=== PATIENT | male | born 1950 | race Caucasian/White ===

== ENCOUNTER → 2016-12-29 | Outpatient (REF) | payer OTHER | LOC: M SFHCCLAY 14:45 | PROVIDERS: ATTEND Family Medicine | DX: Z01.812 Encounter for preprocedural laboratory examination (principal) ==

== ENCOUNTER → 2018-02-08 | Outpatient (REF) | payer MEDICARE, OTHER ==
[~2018-02-08] MED LIST: AUGM875T28 PO; BREO1INH INH; ERYT5OPO; FLOM0.4C39 PO
[2018-02-08 12:07] LABS: ALBUMIN 3.9 GM/DL (3.2-5.2); ALT/SGPT 39 U/L (12-78); BILIRUBIN,TOTAL 0.8 MG/DL (0.2-1.0); BLOOD UREA NITROGEN 17 MG/DL (7-18); CARBON DIOXIDE LEVEL 26 MEQ/L (21-32); CHLORIDE LEVEL 107 MEQ/L (98-107); CHOLESTEROL LEVEL 147 MG/DL (<200); CREATININE FOR GFR 0.94 MG/DL (0.70-1.30); GLOMERULAR FILTRATION RATE > 60.0 (>49); GLUCOSE, FASTING 104 MG/DL (70-100); HDL CHOLESTEROL 49 MG/DL (>40); LDL CHOLESTEROL 86 MG/DL (<100); NON-HDL-C 98 MG/DL; POTASSIUM SERUM 3.7 MEQ/L (3.5-5.1); SODIUM LEVEL 141 MEQ/L (136-145); TOTAL PROTEIN 6.8 GM/DL (6.4-8.2); TRIGLYCERIDES LEVEL 60 MG/DL (<150)
== END ==
LOC: M SFHCCLAY 08:57
PROVIDERS: ATTEND Family Medicine
DX: E78.5 Hyperlipidemia, unspecified (principal)
CPT/HCPCS: 80053; 80061; 93005; G0463

== ENCOUNTER 2018-03-02 18:23 | Emergency (ER) | payer MEDICARE, OTHER ==
[~2018-03-02] VITALS: Ht 182.9 cm; Wt 97.3 kg
[2018-03-02] MEDS ORDERED: BREO1INH INH (18:53)
[2018-03-02] MEDS ORDERED: FLOM0.4C39 PO (18:53)
[2018-03-02] MEDS ORDERED: ERYT5OPO (18:53)
[2018-03-02] MEDS ORDERED: PERCOCET 5MG/325MG TAB PO ONE (19:30)
[2018-03-02] MEDS ORDERED: AUGMENTIN 875 MG TAB PO ONE (19:30)
--- NOTE | 2018-03-02 19:52 | REPVR ---
EXAM: CT Head Without Contrast EXAM DATE/TIME: 03/02/2018 6:57 PM CLINICAL HISTORY: 68 years old, male; Injury or trauma; Fall; Initial encounter; Blunt trauma (contusions or hematomas); Consciousness not specified; Additional info: Fall, nasal deformity TECHNIQUE: Axial computed tomography images of the head/brain without contrast. All CT scans at this facility use at least one of these dose optimization techniques: automated exposure control; mA and/or kV adjustment per patient size (includes targeted exams where dose is matched to clinical indication); or iterative reconstruction. COMPARISON: No relevant prior studies available. FINDINGS: Brain: There is mild cortical atrophy. Minimal low-density in the periventricular white matter. No hemorrhage. Ventricles: Normal. No ventriculomegaly. Bones/joints: There is a fracture of the right nasal bone. Sinuses: Normal as visualized. No acute sinusitis. Mastoid air cells: Normal as visualized. No mastoid effusion. Soft tissues: Normal. IMPRESSION: 1. No acute findings. 2. Fracture of the right nasal bone. Electronically signed by: Brielle Wilkinson On 03/02/2018 19:52:05 PM
--- NOTE | 2018-03-02 20:00 | REPVR ---
EXAM: CT Cervical Spine Without Contrast EXAM DATE/TIME: 03/02/2018 6:57 PM CLINICAL HISTORY: 68 years old, male; Injury or trauma; Fall; Initial encounter; Blunt trauma; Additional info: Fall, nasal deformity TECHNIQUE: Axial computed tomography images of the cervical spine without intravenous contrast. All CT scans at this facility use at least one of these dose optimization techniques: automated exposure control; mA and/or kV adjustment per patient size (includes targeted exams where dose is matched to clinical indication); or iterative reconstruction. Coronal and sagittal reformatted images were created and reviewed. COMPARISON: No relevant prior studies available. FINDINGS: Vertebrae: No acute fracture. Normal alignment. Soft tissues: Unremarkable. Lungs: Lung apices are normal. DISCS/SPINAL CANAL/NEURAL FORAMINA: C2-C3: Mild uncovertebral hypertrophy. No disc herniation. No central stenosis. No neural foraminal narrowing. C3-C4: Mild uncovertebral hypertrophy. No disc herniation. No central stenosis. No neural foraminal narrowing. C4-C5: Moderate uncovertebral hypertrophy. Disc space narrowing. Vacuum disc noted. No disc herniation. No central stenosis. Mild right foraminal stenosis. C5-C6: Moderate to severe uncovertebral hypertrophy. Narrowed intervertebral disc space. Moderate bilateral foraminal stenosis. No central stenosis. No disc herniation. C6-C7: Moderate to severe bilateral uncovertebral hypertrophy. Narrowed intervertebral disc space. Moderate foraminal stenosis on the right. Mild foraminal stenosis on the left. No disc herniation. No central stenosis. . C7-T1: No disc herniation. No spinal stenosis. No neural foraminal narrowing. IMPRESSION: No acute findings. 2. Degenerative disc disease with foraminal stenosis in the mid and lower cervical spine. Electronically signed by: Brielle Wilkinson On 03/02/2018 20:00:13 PM
--- NOTE | 2018-03-02 20:05 | REPVR ---
EXAM: CT Maxillofacial Without Contrast EXAM DATE/TIME: 03/02/2018 6:57 PM CLINICAL HISTORY: 68 years old, male; Injury or trauma; Fall; Initial encounter; Blunt trauma (contusions or hematomas); Nose; Additional info: Fall, nasal deformity TECHNIQUE: Axial computed tomography images of the face without intravenous contrast. All CT scans at this facility use at least one of these dose optimization techniques: automated exposure control; mA and/or kV adjustment per patient size (includes targeted exams where dose is matched to clinical indication); or iterative reconstruction. Coronal and sagittal reformatted images were created and reviewed. COMPARISON: No relevant prior studies available. FINDINGS: Orbits: No acute intraorbital abnormality. Globes are unremarkable. Sinuses: Normal. No air-fluid levels. Bones/joints: The nose is deviated to the left. There is a small fracture of the anterior superior aspect of the left nasal bone. 3 fractures are noted of the right nasal bone. Nasal cavity: The nasal septum is deviated to the right. Soft tissues: No significant facial soft tissue swelling. IMPRESSION: Multiple nasal bone fractures. Electronically signed by: Brielle Wilkinson On 03/02/2018 20:04:30 PM
[2018-03-02] MEDS ORDERED: AUGM875T28 PO (20:28)
[2018-03-02] MEDS ORDERED: OXYCODONE/APAP 5MG/325MG(BULK FOR ED) 1 TABLET PO ONE (20:30)
[2018-03-02 20:53] VITALS: BP 169/77
== END 2018-03-02 20:54 | disposition home or self-care (01) ==
LOC: M ED 18:23
DX: S02.2XXB Fracture of nasal bones, initial encounter for open fracture (principal); S06.0X0A Concussion without loss of consciousness, initial encounter; W22.8XXA Striking against or struck by other objects, initial encounter; Y92.89 Other specified places as the place of occurrence of the external cause; J45.909 Unspecified asthma, uncomplicated; K21.9 Gastro-esophageal reflux disease without esophagitis; G47.33 Obstructive sleep apnea (adult) (pediatric); N40.0 Benign prostatic hyperplasia without lower urinary tract symptoms; Z99.89 Dependence on other enabling machines and devices; Z79.899 Other long term (current) drug therapy; Z88.1 Allergy status to other antibiotic agents; Z88.8 Allergy status to other drugs, medicaments and biological substances; Z87.891 Personal history of nicotine dependence

== ENCOUNTER 2018-03-15 10:54 | Day surgery (SDC) | payer MEDICARE, OTHER ==
[~2018-03-15] VITALS: Ht 182.9 cm; Wt 97.1 kg
[~2018-03-15 10:54] MED LIST changes: +NORCO, ANEXSIA 5/325MG TABLET (HYDROcodone/ACETAMINOPHEN) PO SCH
[2018-03-15] MEDS ORDERED: ONDANSETRON 4MG/2ML VIAL (J2405) As Ordered ONE (12:24)
[2018-03-15] MEDS ORDERED: LIDOCAINE 2% INJ 100 MG/5 ML SDV (FOR ANES.) As Ordered ONE (12:25)
[2018-03-15] MEDS ORDERED: PROPOFOL 200 MG/20 ML VIAL As Ordered ONE ×2 (12:25→14:05)
[2018-03-15] MEDS ORDERED: dexameTHASONE 4 MG/ML 1ML VIAL (J1100) As Ordered ONE (12:25)
[2018-03-15] MEDS ORDERED: fentaNYL 100 MCG/2 ML INJECTION (J3010) As Ordered ONE ×3 (12:26→15:01)
[2018-03-15] MEDS ORDERED: MIDAZOLAM INJ 2 MG/2 ML VIAL (J2250) As Ordered ONE (12:26)
[2018-03-15] MEDS ORDERED: METHYLENE BLUE 0.5% (5MG/ML) 10 ML AMP (PROVAYBLUE)(Q9968 PER 1MG) As Ordered ONE (13:08)
[2018-03-15] MEDS ORDERED: EPINEPHrine 1MG/ML INJ 30ML MD-VIAL As Ordered ONE (13:08)
[2018-03-15] MEDS ORDERED: LIDOCAINE W/EPINEPHRINE 1% 20ML VIAL As Ordered ONE (13:08)
[2018-03-15] MEDS ORDERED: KETOROLAC 60 MG/2 ML VIAL (J1885) As Ordered ONE (14:01)
[2018-03-15] MEDS ORDERED: SUGAMMADEX SODIUM 500 MG/5 ML VIAL (BRIDION) As Ordered ONE (14:06)
[2018-03-15] MEDS ORDERED: ROCURONIUM BROMIDE 50 MG/5 ML VIAL As Ordered ONE (14:06)
[2018-03-15] MEDS ORDERED: GLYCOPYRROLATE INJ 0.2 MG/ML 2 ML VIAL As Ordered ONE (14:24)
[2018-03-15] MEDS: PERCOCET 5MG/325MG TAB PO PRN ×2 (15:00→15:35)
[2018-03-15] MEDS: fentaNYL 100 MCG/2 ML INJECTION (J3010) IV PRN ×4 (15:00→15:20)
[2018-03-15] MEDS ORDERED: PERCOCET 5MG/325MG TAB As Ordered ONE (15:01)
[2018-03-15] MEDS ORDERED: ONDANSETRON 4MG/2ML VIAL (J2405) IV PRN (15:15)
[2018-03-15] MEDS ORDERED: LR 1,000 ML IV SCH ×2 (15:15→19:00)
[2018-03-15] MEDS ORDERED: NORCO, ANEXSIA 5/325MG TABLET (HYDROcodone/ACETAMINOPHEN) As Ordered ONE (18:22)
[2018-03-15] MEDS ORDERED: NORCO, ANEXSIA 5/325MG TABLET (HYDROcodone/ACETAMINOPHEN) PO PRN (19:00)
[2018-03-15 19:15] VITALS: BP 152/70
--- NOTE | 2018-03-20 16:01 | RO ---
DATE OF PROCEDURE: 03/15/2018 PREOPERATIVE DIAGNOSES: Right nasal deformity and nasal bone fracture. POSTOPERATIVE DIAGNOSES: Right nasal deformity and nasal bone fracture. PROCEDURE PERFORMED: Closed nasal reduction. SURGEON: Dr. Bebo Pickens ACCOUNT SERVICE REPRESENTATIVE: ANESTHESIA: General. CLINICAL PREAMBLE: This 68-year-old man sustained trauma to the nose on 03/02/2018. It resulted in the nasal deformity including closed nasal fracture. CT scan of the sinuses confirmed presence of fracture of right nasal bone. Management options including closed nasal reduction have been discussed. Patient understood and consented to the procedure. DESCRIPTION OF PROCEDURE: Patient was identified in preoperative holding and brought to the operating room in stable condition. In supine position on the operating table, patient received general anesthesia followed by orotracheal intubation without incident. Patient was prepped and draped in the usual fashion for the procedure. Both sides of the nasal cavity were packed using pledgets soaked in 1:1000 epinephrine. After a waiting period, the pledgets were removed. The nasal dorsum was palpated and was noted to be deviated to the left side. Using the [employer] nasal fracture elevators, the depressed portion of the nasal bone along the right lateral border was carefully elevated and attempted to replace along the natural anatomic location. The [place] splint was then applied to the appropriately prepped skin surface of the nasal dorsum. At the end of the procedure, sponge and instrument counts were correct. No complication was encountered. Estimated blood loss was less than 10 mL. General anesthesia was reversed, and patient was extubated and brought to recovery room in stable condition.
== END 2018-03-15 19:32 | disposition home or self-care (01) ==
LOC: M SDC 10:54
PROVIDERS: ATTEND Otolaryngology
DX: S02.2XXA Fracture of nasal bones, initial encounter for closed fracture (principal); G47.33 Obstructive sleep apnea (adult) (pediatric); J45.909 Unspecified asthma, uncomplicated; N40.0 Benign prostatic hyperplasia without lower urinary tract symptoms; R51 Headache; Z88.1 Allergy status to other antibiotic agents; Z85.828 Personal history of other malignant neoplasm of skin; Z72.0 Tobacco use; X58.XXXA Exposure to other specified factors, initial encounter; Y93.89 Activity, other specified; Y92.89 Other specified places as the place of occurrence of the external cause; Y99.8 Other external cause status
CPT/HCPCS: 21320; J1100; J1885; J2250; J2405; J3010; Q9968

== ENCOUNTER 2018-06-21 13:40 | Emergency (ER) | payer MEDICARE, OTHER ==
[~2018-06-21] VITALS: Ht 182.9 cm; Wt 100.9 kg
[~2018-06-21 13:40] MED LIST changes: +ERYT1OIN26; -ERYT5OPO; -NORCO, ANEXSIA 5/325MG TABLET (HYDROcodone/ACETAMINOPHEN) PO SCH
[2018-06-21] MEDS ORDERED: BREO1INH PO (13:45)
[2018-06-21] MEDS ORDERED: LIDOCAINE 1% MDV 20ML VIAL SC ONE (15:15)
[2018-06-21] MEDS ORDERED: ADACEL/BOOSTRIX VACCINE (DIPHTH/PERTUSS/ACELL/TETANUS)0.5ML SYR (90715) IM ONE (15:15)
--- NOTE | 2018-06-21 15:54 | REP ---
REASON: Pain after trauma. PRIORS: None. There is a tuft fracture of the third digit with evidence of laceration of the fingertip. Electronically Signed by Hema Garcias DO 06/21/2018 04:33 P
[2018-06-21] MEDS ORDERED: CEPHALEXIN 500 MG CAP PO ONE (16:15)
[2018-06-21] MEDS ORDERED: KEFL500C17 PO (16:18)
[2018-06-21] MEDS ORDERED: NORC1TAB7 PO (16:35)
[2018-06-21] MEDS ORDERED: NORCO, ANEXSIA 5/325MG TABLET (HYDROcodone/ACETAMINOPHEN) PO ONE (16:45)
[2018-06-21 16:56] VITALS: BP 158/74
== END 2018-06-21 16:57 | disposition home or self-care (01) ==
LOC: M ED 13:40
DX: S62.633B Displaced fracture of distal phalanx of left middle finger, initial encounter for open fracture (principal); W23.0XXA Caught, crushed, jammed, or pinched between moving objects, initial encounter; Y92.018 Other place in single-family (private) house as the place of occurrence of the external cause; J45.909 Unspecified asthma, uncomplicated; N40.0 Benign prostatic hyperplasia without lower urinary tract symptoms; Z79.899 Other long term (current) drug therapy; Z88.1 Allergy status to other antibiotic agents

== ENCOUNTER → 2019-03-04 | Outpatient (REF) | payer MEDICARE, OTHER ==
[~2019-03-04] MED LIST changes: +BREO1INH PO; +KEFL500C17 PO; +NORC1TAB7 PO
[2019-03-04 12:41] LABS: ALBUMIN 4.4 GM/DL (3.2-5.2); ALT/SGPT 37 U/L (12-78); BILIRUBIN,TOTAL 0.9 MG/DL (0.2-1.0); BLOOD UREA NITROGEN 20 MG/DL (7-18); CALCIUM LEVEL 9.6 MG/DL (8.8-10.2); CARBON DIOXIDE LEVEL 27 MEQ/L (21-32); CHLORIDE LEVEL 104 MEQ/L (98-107); CHOLESTEROL LEVEL 172 MG/DL (<200); CHOLESTEROL RISK RATIO 3.185 (<5); GLOMERULAR FILTRATION RATE > 60.0 (>49); GLUCOSE, FASTING 109 MG/DL (70-100); HDL CHOLESTEROL 54 MG/DL (>40); LDL CHOLESTEROL 103 MG/DL (<100); NON-HDL-C 118 MG/DL; POTASSIUM SERUM 4.3 MEQ/L (3.5-5.1); SODIUM LEVEL 141 MEQ/L (136-145); TOTAL PROTEIN 7.7 GM/DL (6.4-8.2); TRIGLYCERIDES LEVEL 75 MG/DL (<150)
== END ==
LOC: M SFHCCLAY 08:11
PROVIDERS: ATTEND Family Medicine
DX: E78.5 Hyperlipidemia, unspecified (principal)
CPT/HCPCS: 80053; 80061; G0463

== ENCOUNTER → 2020-05-12 | Outpatient (REF) | payer MEDICARE, OTHER ==
[~2020-05-12] MED LIST changes: -ERYT1OIN26; +ERYT5OIN25
[2020-05-12 11:59] LABS: BASO # 0.1 10^3/uL (0.0-0.2); BASO % 0.6 % (0.0-1.0); EOS # 0.2 10^3/uL (0.0-0.5); EOS % 1.9 % (0.0-3.0); HEMATOCRIT 42.6 % (42.0-52.0); LYMPH # 3.2 10^3/uL (1.5-5.0); LYMPH % 30.8 % (24.0-44.0); MEAN CORPUSCULAR HEMOGLOBIN 29.7 pg (27.0-33.0); MEAN CORPUSCULAR HGB CONC 32.9 g/dl (32.0-36.5); MEAN CORPUSCULAR VOLUME 90.4 fl (80.0-96.0); MONO # 0.8 10^3/uL (0.0-0.8); MONO % 8.1 % (2.0-8.0); NEUTROPHILS % 58.3 % (36.0-66.0); PLATELET COUNT, AUTOMATED 369 10^3/uL (150-450); RED BLOOD COUNT 4.71 10^6/uL (4.30-6.10); WHITE BLOOD COUNT 10.3 10^3/uL (4.0-10.0)
[2020-05-12 12:05] LABS: ALBUMIN 4.3 GM/DL (3.2-5.2); ALT/SGPT 63 U/L (12-78); BILIRUBIN,TOTAL 0.9 MG/DL (0.2-1.0); BLOOD UREA NITROGEN 20 MG/DL (7-18); CALCIUM LEVEL 10.2 MG/DL (8.8-10.2); CARBON DIOXIDE LEVEL 29 MEQ/L (21-32); CHLORIDE LEVEL 105 MEQ/L (98-107); CHOLESTEROL LEVEL 223 MG/DL (<200); CHOLESTEROL RISK RATIO 4.645 (<5); GLOMERULAR FILTRATION RATE > 60.0 (>49); GLUCOSE, FASTING 108 MG/DL (70-100); HDL CHOLESTEROL 48 MG/DL (>40); LDL CHOLESTEROL 145 MG/DL (<100); NON-HDL-C 175 MG/DL; SODIUM LEVEL 140 MEQ/L (136-145); TOTAL PROTEIN 7.5 GM/DL (6.4-8.2); TRIGLYCERIDES LEVEL 149 MG/DL (<150)
== END ==
LOC: M SFHCCLAY 07:56
PROVIDERS: ATTEND Family Medicine
DX: E78.5 Hyperlipidemia, unspecified (principal)
CPT/HCPCS: 80053; 80061; 85025; G0463

== ENCOUNTER 2020-11-07 11:47 | Inpatient (IN) | payer MEDICARE, OTHER ==
[~2020-11-07] VITALS: Ht 182.9 cm; Wt 96.5 kg
[2020-11-07] MEDS ORDERED: dexameTHASONE 4 MG/ML 1ML VIAL (J1100 PER 1MG) IV ONE (12:10)
[2020-11-07] MEDS: COMBIVENT RESPIMAT 100-20MCG INHALER 4GM INH SCH ×3 (12:30→13:45)
--- NOTE | 2020-11-07 12:40 | REP ---
INDICATION: DYSPNEA/COUGH. COMPARISON: Portable chest, 01/19/2010. TECHNIQUE: Upright AP chest image was obtained. FINDINGS: There is airspace disease in the mid lung zone on the right and in the lower lung zone on the left consistent with atelectasis or pneumonia. There is cardiomegaly and aortic ectasia consistent with benign essential hypertension. There is calcific vascular disease of the thoracic aorta. The upper abdominal bowel gas pattern is normal. There are no bony abnormalities of the chest IMPRESSION: 1. Bilateral airspace disease consistent with atelectasis or pneumonia. 2. Findings consistent with hypertension. <Electronically signed by Maik Garcia > 11/07/20 [id number]
[2020-11-07 12:41] LABS: BASO % 0.3 % (0.0-1.0); HEMATOCRIT 35.7 % (42.0-52.0); HEMOGLOBIN 11.5 g/dl (13.5-17.5); LYMPH % 13.5 % (24.0-44.0); MEAN CORPUSCULAR HEMOGLOBIN 29.3 pg (27.0-33.0); MEAN CORPUSCULAR HGB CONC 32.2 g/dl (32.0-36.5); MEAN CORPUSCULAR VOLUME 90.8 fl (80.0-96.0); MONO # 0.3 10^3/uL (0.0-0.8); MONO % 4.3 % (2.0-8.0); NEUTROPHILS # 6.1 10^3/uL (1.5-8.5); NEUTROPHILS % 81.2 % (36.0-66.0); PLATELET COUNT, AUTOMATED 201 10^3/uL (150-450); RED BLOOD COUNT 3.93 10^6/uL (4.30-6.10); WHITE BLOOD COUNT 7.5 10^3/uL (4.0-10.0)
[2020-11-07 12:42] LABS: VENOUS BASE EXCESS 1.1 (-2.0-2.0); VENOUS HCO3 27.5 MEQ/L (23.0-27.0); VENOUS O2 SATURATION 57.8 % (60.0-80.0); VENOUS PARTIAL PRESSURE CO2 51.6 mmHg (38.0-50.0); VENOUS PARTIAL PRESSURE O2 32.8 mmHg (30.0-50.0); VENOUS PH 7.345 UNITS (7.330-7.430); VENOUS STANDARD HCO3 24.6 MEQ/L; VENOUS TOTAL CO2 29.1 MEQ/L (24.0-28.0)
[2020-11-07 13:07] LABS: RSV AMPLIFICATION NEGATIVE (NEGATIVE)
[2020-11-07 13:16] LABS: ALT/SGPT 105 U/L (12-78); BILIRUBIN,DIRECT 0.3 MG/DL (0.0-0.2); BLOOD UREA NITROGEN 16 MG/DL (7-18); CALCIUM LEVEL 8.1 MG/DL (8.8-10.2); CARBON DIOXIDE LEVEL 27 MEQ/L (21-32); CHLORIDE LEVEL 107 MEQ/L (98-107); CK-MB VALUE MASS 4.5 NG/ML (<3.6); CPK CREATINE PHOSPHOKINASE 789 U/L (39-308); CREATININE FOR GFR 0.84 MG/DL (0.70-1.30); GLOMERULAR FILTRATION RATE > 60.0 (>49); GLUCOSE, FASTING 109 MG/DL (70-100); MB/CK RELATIVE INDEX 0.57 (< OR =4); NT-PRO BNP 76 PG/ML (<125); POTASSIUM SERUM 4.3 MEQ/L (3.5-5.1); SODIUM LEVEL 139 MEQ/L (136-145); TOTAL PROTEIN 6.2 GM/DL (6.4-8.2); TROPONIN I < 0.02 NG/ML (< 0.10)
[2020-11-07] MEDS ORDERED: IBUP-1720 PO (15:11)
[2020-11-07] MEDS ORDERED: ACET-683 PO (15:11)
[2020-11-07] MEDS ORDERED: HOME MED LIST COMPLETE! XX SCH (15:15)
--- NOTE | 2020-11-07 15:21 | HPEPDOC ---
General Date of Admission Nov 07, 2020 at 14:08 Date of Service: Nov 07, 2020 Chief Complaint The patient is a 70-year-old male admitted with a reason for visit of Pneumonia Due To Covid 19 Virus. History of Present Illness 70-year-old male with history of asthma, DREW on CPAP, BPH status post seeding presented to the emergency room with 7 days history of cough cold congestion malaise body aches flulike symptoms. His had COVID from 4 to 5 days prior to his symptoms. For the past 4 days he felt that his asthma has been acting up he was having shortness of breath, wheezing. He has been using nebulizers every 4 hours and checking his oxygen saturation. His oxygen has been ranging from 82% to 89% at home. This morning he woke up and his oxygen saturation was 82% he used his nebulizer without any improvement. He felt that his asthma exacerbation was not getting any better so he came to the emergency room. He is unvaccinated for the Covid. In the ED he was found to be Covid positive. Chest x-ray shows bilateral pulmonary infiltrates. He is admitted for Covid pneumonia with hypoxia. Home Medications Scheduled Fluticasone/Vilanterol (Breo Ellipta 100-25 Mcg INH) 1 Each Blst.w.dev, 1 PUFF PO DAILY, (Reported) Scheduled PRN Acetaminophen (Acetaminophen) 500 Mg Tablet, 1,000 MG PO Q6H PRN for FEVER, (Reported) Ibuprofen (Ibuprofen) 200 Mg Tablet, 800 MG PO TID PRN for PAIN LEVEL 1-4, (Reported) Allergies Coded Allergies: chloramphenicol (Verified Allergy, Unknown, 06/21/18) ciprofloxacin (Verified Allergy, Unknown, 06/21/18) levofloxacin (Verified Allergy, Unknown, 06/21/18) Past Medical History Medical History Asthma, DREW, BPH Surgical History Tonsillectomy and adenoidectomy bilateral eyelid surgery, lower back surgery, appendectomy, seeding of prostate, back injections, Family History Significant Family History: Asthma (Children), Cancer (Father from multiple myeloma) Social History * Smoker: non-smoker Alcohol: rarely Drugs: denies A-FIB/CHADSVASC A-FIB History Current/History of A-Fib/PAF?: No Review of Systems Constitutional: Reports: Malaise, Weakness, Fatigue; Denies: Chills, Fever, Night Sweats Eyes: Denies: Pain, Vision change ENT: Reports: Sinus Congestion, Sore Throat; Denies: Head Aches, Ear Pain, Dysphagia Skin: Denies: Rash, Lesions, Breakdown Pulmonary: Reports: Dyspnea, Cough Cardiovascular: Denies: Chest Pain, Palpitations, Orthopnea, Paroxysmal Noc. Dyspnea, Lt Headedness Gastrointestinal: Denies: Nausea, Vomiting, Abdominal Pain, Diarrhea Genitourinary: Denies: Dysuria, Frequency, Incontinence, Retention Musculoskeletal: Denies: Neck Pain, Back Pain, Joint Pain, Muscle Pain, Spasms Neurological: Denies: Weakness, Numbness, Change in speech, Confusion Physical Examination General Exam: Positive: Alert, Cooperative, No Acute Distress Eye Exam: Positive: PERRLA, Conjunctiva & lids normal, EOMI; Negative: Sclera icteric ENT Exam: Positive: Atraumatic, Mucous membr. moist/pink, Pharynx Normal Neck Exam: Positive: Supple; Negative: JVD, thyromegaly Chest Exam: Positive: Rhonchi, Diminished, Other (Bilateral diffuse crackles); Negative: Rales, Wheezing Heart Exam: Positive: Rate Normal, Regular Rhythm, Normal S1, Normal S2; Negative: Murmurs, Rubs Abdomen Exam: Positive: Normal bowel sounds, Soft; Negative: Tenderness Extremity Exam: Negative: Clubbing, Cyanosis, Edema Skin Exam: Positive: Nl turgor and temperature; Negative: Breakdown, Lesion Neuro Exam: Positive: Normal Speech, Strength at 5/5 X4 ext, Normal Tone Psych Exam: Positive: Memory Intact, Oriented x 3 Vital Signs Vital Signs Date Time Temp Pulse Resp B/P (MAP) Pulse Ox O2 Delivery O2 Flow Rate FiO2 11/07/20 14:52 98.2 11/07/20 14:30 81 153/68 (96) 89 Nasal Cannula 11/07/20 13:47 18 Laboratory Data Labs 24H Laboratory Tests 2 11/07/20 12:22: Coronavirus (COVID-19)(PCR) POSITIVEA, Influenza Type A (RT-PCR) NEGATIVE, Influ dorinda Type B (RT-PCR) NEGATIVE, Respiratory Syncytial Virus (PCR) NEGATIVE 11/07/20 12:29: Blood Gas Bicarbonate Standard 24.6, Venous Blood pH 7.345, Venous Blood Partial Pressure CO2 51.6H, Venous Blood Partial Pressure O2 32.8, Venous Blood Total Carbon Dioxide 29.1H, Venous Blood HCO3 27.5H, Venous Blood Oxygen Saturation 57.8L, Venous Blood Base Excess 1.1, Anion Gap 5L, Glomerular Filtration Rate > 60.0, Calcium Level 8.1L, Total Bilirubin 1.0, Direct Bilirubin 0.3H, Aspartate Amino Transf (AST/SGOT) 114H, Alanine Aminotransferase (ALT/SGPT) 105H, Alkaline Phosphatase 55, Total Creatine Kinase 789H, Creatine Kinase MB 4.5H, Creatine Kinase MB Relative Index 0.57, Troponin I < 0.02, RM-Xid-T-Type Natriuretic Peptide 76, Total Protein 6.2L, Albumin 3.0L, Albumin/Globulin Ratio 0.9, Thyroid Stimulating Hormone (TSH) 1.690 11/07/20 12:30: Immature Granulocyte % (Auto) 0.7, Neutrophils (%) (Auto) 81.2H, Lymphocytes (%) (Auto) 13.5L, Monocytes (%) (Auto) 4.3, Eosinophils (%) (Auto) 0.0, Basophils (%) (Auto) 0.3, Neutrophils # (Auto) 6.1, Lymphocytes # (Auto) 1.0L, Monocytes # (Auto) 0.3, Eosinophils # (Auto) 0.0, Basophils # (Auto) 0.0, Nucleated Red Blood Cells % (auto) 0.0, Lactic Acid Level 1.1 CBC/BMP Laboratory Tests 11/07/20 12:29 11/07/20 12:30 Microbiology Microbiology 11/07/20 Blood Culture, Received Pending Assessment/Plan 70-year-old male with history of asthma, DREW on CPAP, BPH status post seeding presented to the emergency room with 7 days history of cough cold congestion malaise body aches flulike symptoms. His had COVID from 4 to 5 days prior to his symptoms. For the past 4 days he felt that his asthma has been acting up he was having shortness of breath, wheezing. He has been using nebulizers every 4 hours and checking his oxygen saturation. His oxygen has been ranging from 82% to 89% at home. This morning he woke up and his oxygen saturation was 82% he used his nebulizer without any improvement. He felt that his asthma e xacerbation was not getting any better so he came to the emergency room. He is unvaccinated for the Covid. In the ED he was found to be Covid positive. Chest x-ray shows bilateral pulmonary infiltrates. He is admitted for Covid pneumonia with hypoxia. Covid pneumonia with hypoxia We will give dexamethasone, remdesivir, albuterol. Will give aspirin, Lovenox. Awake pronation Continuous pulse oximeter Incentive spirometry Covid labs Asthma Exacerbation due to Covid pneumonia We will continue with dexamethasone, Symbicort in place of Breo, albuterol GI prophylaxis PPI twice daily DVT prophylaxis Lovenox twice daily Plan / VTE VTE Prophylaxis Ordered?: Yes Shantel Meadows MD Nov 07, 2020 15:21
[2020-11-07 15:56] LABS: FERRITIN 5571 NG/ML (26-388)
[2020-11-07] MEDS ORDERED: ALBUTEROL 90 MCG/ACT 8GM HFA INHALER INH SCH (16:00)
[2020-11-07] MEDS ORDERED: REMDESIVIR 200 MG in NS 250 ML IV ONE (17:00)
[2020-11-07 18:05] VITALS: BP 185/88
[2020-11-07] MEDS ORDERED: SODIUM CHLORIDE 0.9% INJ 10 ML SYR IV ONE (19:00)
[2020-11-07] MEDS ORDERED: LEVALBUTEROL HFA 45MCG/ACT 15 GM INHALER INH SCH (20:00)
[2020-11-07] MEDS ORDERED: BUDESONIDE 0.5 MG/2 ML INHALATION SUSPENSION INH SCH (20:00)
[2020-11-07] MEDS ORDERED: SYMBICORT 160/4.5MCG INHALER 6GM INH SCH (20:00)
[2020-11-07] MEDS ORDERED: BENZONATATE 100MG CAPSULE PO PRN (20:40)
[2020-11-07] MEDS: PANTOPRAZOLE 40MG TAB (PROTONIX) PO SCH (20:55)
[2020-11-07] MEDS: ASPIRIN 81MG ENTERIC TABLET PO SCH (20:55)
[2020-11-07] MEDS: dexameTHASONE 20MG/5ML VIAL (J1100 PER 1MG) IV SCH (20:59)
[2020-11-07] MEDS: ENOXAPARIN 60MG/0.6ML SYRINGE (J1650 PER 10MG) SC SCH (21:00)
[2020-11-07 21:18] VITALS: BP 162/52
[2020-11-07] MEDS: guaiFENesin ER 600 MG TAB PO SCH (21:23)
--- NOTE | 2020-11-07 21:54 | IPNPDOC ---
Text Note Date of Service Significant event. NOTE Notified patient with preferences regarding care plan given his history of nebulizer use with asthma-he is requesting medication adjustment and nebulizers over inhalers. Additionally, for patient family centered care: patient's daughter with concerns that patient also wants addressed and requests daughter phone call. Adjusted symptom management/supportive care added mucolytic's with Mucinex and antitussive Tessalon Perles given patient reported increased cough. Adjusted patient's albuterol to Xopenex as he is used to Xopenex at home and thus he would prefer it and he is mildly tachycardic. Symbicort adjusted to Pulmicort as patient uses this at home and he reports preference to use it. Staff had made patient aware that Symbicort is just an addition of Formoterol. We will adjust the Pulmicort per patient preference and further discussion with attending at bedside in a.m. may adjust back to Symbicort in a.m. Additionally, spoke with nursing regarding nebulizer policy adjustments. Apparently option in negative pressure room for possible nebulizers but RT will verify this in order for staff safety and containment -we will follow evidence- based practice review and follow policy guidelines. Per request -did reach out to patient's daughter Ivania Potts at [phone] to discuss care plan. With explanation of Symbicort containing Pulmicort, patient would not require any further Budesonide until tomorrow and she is understanding of this and more agreeable to use of Symbicort knowing its a combination therapy. There was a question about whether or not remdesivir would be continued but patient does want remdesivir and will follow patient wishes. Other concern regards use of Plaquenil. Patient reports interest in Plaquenil given patient's daughters research. Discussed with Daughter as she is helping patient with decisions that no algorithm presently suggesting use of Plaquenil. Did discuss the risks of Plaquenil and remdesivir combination that would require monitoring to include checking QT as use of plaquenil can cause QT prolongation and monitoring patient magnesium and LFTs. Will obtain EKG and a.m. lab work in order for attending to better discuss risks and benefits of adjunct Plaquenil use with remdesivir. Did make patient's daughter aware that ID may have to weigh in given the use of this medication in Covid process and it will be per attending recommendation, we will not start Plaquenil tonight. Patient's daughter in agreement with a forementioned. Fortunately, patient is tolerating 2 L nasal cannula and although reported increasing cough he otherwise is not more dyspneic. Should patient have any clinical decline or care plan adjustments- will notify family. VS,Fishbone, I+O VS, Fishbone, I+O Laboratory Tests 11/07/20 12:29 11/07/20 12:30 Vital Signs Date Time Temp Pulse Resp B/P (MAP) Pulse Ox O2 Delivery O2 Flow Rate FiO2 11/07/20 21:21 2.0 11/07/20 21:18 162/52 (88) 11/07/20 20:23 95 20 11/07/20 18:05 100.1 89 Nasal Cannula LANRE GRAF NP Nov 07, 2020 21:54
[2020-11-07 21:56] LABS: PROTHROMBIN TIME 13.6 SECONDS (12.7-14.5)
[2020-11-07 21:57] LABS: PARTIAL THROMBOPLASTIN TIME 42.6 SECONDS (25.9-37.0)
[2020-11-07 21:59] LABS: D-DIMER QUANT 2157.95 ng/ml (<500)
[2020-11-07 22:00] VITALS: BP 152/52
[2020-11-08 00:37] VITALS: BP 156/62
[2020-11-08] MEDS ORDERED: ACETAMINOPHEN TAB 650MG DOSE (2X325MG) PO PRN (01:10)
[2020-11-08] MEDS: LEVALBUTEROL HFA 45MCG/ACT 15 GM INHALER INH SCH ×4 (01:18→11:40)
[2020-11-08 04:00] VITALS: BP 142/62
[2020-11-08 07:34] LABS: BASO % 0.1 % (0.0-1.0); HEMATOCRIT 35.1 % (42.0-52.0); HEMOGLOBIN 11.2 g/dl (13.5-17.5); LYMPH # 0.9 10^3/uL (1.5-5.0); LYMPH % 10.5 % (24.0-44.0); MEAN CORPUSCULAR HEMOGLOBIN 28.8 pg (27.0-33.0); MEAN CORPUSCULAR HGB CONC 31.9 g/dl (32.0-36.5); MEAN CORPUSCULAR VOLUME 90.2 fl (80.0-96.0); MONO # 0.5 10^3/uL (0.0-0.8); MONO % 5.2 % (2.0-8.0); NEUTROPHILS # 7.3 10^3/uL (1.5-8.5); NEUTROPHILS % 83.5 % (36.0-66.0); PLATELET COUNT, AUTOMATED 256 10^3/uL (150-450); RED BLOOD COUNT 3.89 10^6/uL (4.30-6.10); WHITE BLOOD COUNT 8.7 10^3/uL (4.0-10.0)
[2020-11-08 07:48] LABS: INR 0.99; PROTHROMBIN TIME 13.5 SECONDS (12.7-14.5)
[2020-11-08 07:49] LABS: PARTIAL THROMBOPLASTIN TIME 48.2 SECONDS (25.9-37.0)
[2020-11-08 07:52] LABS: D-DIMER QUANT 1744.18 ng/ml (<500)
[2020-11-08] MEDS ORDERED: SYMBICORT 160/4.5MCG INHALER 6GM INH SCH (08:00)
[2020-11-08] MEDS ORDERED: BUDESONIDE 180MCG INHALER (PULMICORT FLEXHALER) INH SCH (08:00)
[2020-11-08 08:06] LABS: ALBUMIN 2.7 GM/DL (3.2-5.2); ALT/SGPT 100 U/L (12-78); BILIRUBIN,DIRECT < 0.1 MG/DL (0.0-0.2); BILIRUBIN,TOTAL 0.7 MG/DL (0.2-1.0); BLOOD UREA NITROGEN 18 MG/DL (7-18); CALCIUM LEVEL 8.2 MG/DL (8.8-10.2); CARBON DIOXIDE LEVEL 23 MEQ/L (21-32); CHLORIDE LEVEL 108 MEQ/L (98-107); CREATININE FOR GFR 0.82 MG/DL (0.70-1.30); GLOMERULAR FILTRATION RATE > 60.0 (>49); GLUCOSE, FASTING 172 MG/DL (70-100); MAGNESIUM LEVEL 2.2 MG/DL (1.8-2.4); POTASSIUM SERUM 5.4 MEQ/L (3.5-5.1); SODIUM LEVEL 137 MEQ/L (136-145); TOTAL PROTEIN 6.2 GM/DL (6.4-8.2)
--- NOTE | 2020-11-08 08:20 | ECGEPIP ---
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
--- NOTE | 2020-11-08 08:22 | ECGEPIP ---
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
[2020-11-08] MEDS ORDERED: dexameTHASONE 4 MG/ML 1ML VIAL (J1100 PER 1MG) IV SCH (09:00)
[2020-11-08] MEDS: dexameTHASONE 20MG/5ML VIAL (J1100 PER 1MG) IV SCH (09:39)
[2020-11-08] MEDS: guaiFENesin ER 600 MG TAB PO SCH ×2 (09:39→20:20)
[2020-11-08] MEDS: ASPIRIN 81MG ENTERIC TABLET PO SCH (09:39)
[2020-11-08] MEDS: PANTOPRAZOLE 40MG TAB (PROTONIX) PO SCH ×2 (09:39→20:19)
[2020-11-08] MEDS: ENOXAPARIN 60MG/0.6ML SYRINGE (J1650 PER 10MG) SC SCH ×2 (09:40→20:19)
[2020-11-08 10:00] VITALS: BP 164/60
[2020-11-08] MEDS: LEVALBUTEROL 1.25 MG/0.5 ML CONCENTRATE NEB INH SCH ×3 (12:00→20:00)
--- NOTE | 2020-11-08 13:26 | IPNPDOC ---
Subjective Date Seen The patient was seen on 11/08/20. Subjective Chief Complaint/HPI Feeling okay still continues to have a bothersome cough. On 2 L of oxygen desaturating down to 8889% when he is talking or moving around. At rest with 2 L he is usually between 92%-94%. No nausea vomiting or diarrhea. No abdominal pain. Appetite okay Objective Physical Examination General Exam: Positive: Alert, Cooperative, No Acute Distress Eye Exam: Positive: PERRLA, Conjunctiva & lids normal, EOMI; Negative: Sclera icteric ENT Exam: Positive: Atraumatic, Mucous membr. moist/pink, Pharynx Normal Neck Exam: Positive: Supple; Negative: JVD, thyromegaly Chest Exam: Positive: Rhonchi, Diminished, Other (Bilateral diffuse crackles); Negative: Rales, Wheezing Heart Exam: Positive: Rate Normal, Regular Rhythm, Normal S1, Normal S2; Negative: Murmurs, Rubs Abdomen Exam: Positive: Normal bowel sounds, Soft; Negative: Tenderness Extremity Exam: Negative: Clubbing, Cyanosis, Edema Skin Exam: Positive: Nl turgor and temperature; Negative: Breakdown, Lesion Neuro Exam: Positive: Normal Speech, Strength at 5/5 X4 ext, Normal Tone Psych Exam: Positive: Memory Intact, Oriented x 3 Assessment /Plan Assessment 70-year-old male with history of asthma, DREW on CPAP, BPH status post seeding presented to the emergency room with 7 days history of cough cold congestion malaise body aches flulike symptoms. His had COVID from 4 to 5 days prior to his symptoms. For the past 4 days he felt that his asthma has been acting up he was having shortness of breath, wheezing. He has been using nebulizers every 4 hours and checking his oxygen saturation. His oxygen has been ranging from 82% to 89% at home. This morning he woke up and his oxygen saturation was 82% he used his nebulizer without any improvement. He felt that his asthma exacerbation was not getting any better so he came to the emergency room. He is unvaccinated for the Covid. In the ED he was found to be Covid positive. Chest x-ray shows bilateral pulmonary infiltrates. He is admitted for Covid pneumonia with hypoxia. Covid pneumonia with hypoxia We will give steroids, remdesivir, albuterol. Will give aspirin, Lovenox. Awake pronation Continuous pulse oximeter Incentive spirometry Covid labs Transaminitis Due to Covid No worsening with remdesivir will monitor daily Asthma Exacerbation due to Covid pneumonia We will continue with steroids, Xopenex, Perforomist and budesonide GI prophylaxis PPI twice daily DVT prophylaxis Lovenox twice daily Plan/VTE VTE Prophylaxis Ordered?: Yes VS, I&O, 24H, Fishbone Vital Signs/I&O Vital Signs Date Time Temp Pulse Resp B/P (MAP) Pulse Ox O2 Delivery O2 Flow Rate FiO2 11/08/20 11:42 75 18 11/08/20 10:00 98.2 164/60 (94) 90 Nasal Cannula 2.0 I&O- Last 24 Hours up to 6 AM 11/08/20 06:00 Intake Total 1910 ml Output Total 1200 ml Balance 710 ml Laboratory Data 24H LABS Laboratory Tests 2 11/07/20 21:33: Prothrombin Time 13.6, Prothromb Time International Ratio 1.00, Activated Partial Thromboplast Time 42.6H, Fibrinogen 461H, D-Dimer, Quantitative 2157.95H 11/08/20 06:33: Prothrombin Time 13.5, Prothromb Time International Ratio 0.99, Activated Partial Thromboplast Time 48.2H, Fibrinogen 573H, D-Dimer, Quantitative 1744.18H, Immature Granulocyte % (Auto) 0.7, Neutrophils (%) (Auto) 83.5H, Lymphocytes (%) (Auto) 10.5L, Monocytes (%) (Auto) 5.2, Eosinophils (%) (Auto) 0.0, Basophils (%) (Auto) 0.1, Neutrophils # (Auto) 7.3, Lymphocytes # (Auto) 0.9L, Monocytes # (Auto) 0.5, Eosinophils # (Auto) 0.0, Basophils # (Auto) 0.0, Nucleated Red Blood Cells % (auto) 0.0, Anion Gap 6L, Glomerular Filtration Rate > 60.0, Calcium Level 8.2L, Magnesium Level 2.2, Total Bilirubin 0.7, Direct Bilirubin < 0.1, Aspartate Amino Transf (AST/SGOT) 123H, Alanine Aminotransferase (ALT/SGPT) 100H, Alkaline Phosphatase 55, Total Protein 6.2L, Albumin 2.7L, Albumin/Globulin Ratio 0.8 CBC/BMP Laboratory Tests 11/08/20 06:33 Microbiology Microbiology 9/25/21 Blood Culture, Received Pending 11/07/20 Blood Culture - Preliminary, Resulted No growth after 24 hours . All specim... Shantel Meadows MD Nov 08, 2020 13:26
[2020-11-08] MEDS: methylPREDNISolone 40MG 1ML VIAL IV SCH ×2 (13:41→20:20)
[2020-11-08] MEDS: REMDESIVIR 100 MG in NS 250 ML IV SCH (13:46)
[2020-11-08 14:00] VITALS: BP 134/58
[2020-11-08] MEDS: SODIUM CHLORIDE 0.9% INJ 10 ML SYR IV SCH (14:58)
[2020-11-08] MEDS ORDERED: REMDESIVIR 100 MG in NS 250 ML IV SCH (17:00)
[2020-11-08 18:00] VITALS: BP 152/66
[2020-11-08] MEDS ORDERED: SODIUM CHLORIDE 0.9% INJ 10 ML SYR IV SCH (18:00)
[2020-11-08 20:34] VITALS: BP 151/78
[2020-11-08] MEDS: BUDESONIDE 0.5 MG/2 ML INHALATION SUSPENSION INH SCH (20:39)
[2020-11-08] MEDS: FORMOTEROL FUMARATE 20 MCG/2 ML INHALATION SOLUTION (PERFOROMIST) INH SCH (20:39)
[2020-11-09 00:28] VITALS: BP 144/60
[2020-11-09] MEDS: LEVALBUTEROL 1.25 MG/0.5 ML CONCENTRATE NEB INH SCH ×6 (00:55→20:00)
[2020-11-09] MEDS: methylPREDNISolone 40MG 1ML VIAL IV SCH ×4 (02:51→21:44)
[2020-11-09 04:24] VITALS: BP 158/64
[2020-11-09 07:29] LABS: BASO % 0.1 % (0.0-1.0); HEMATOCRIT 34.8 % (42.0-52.0); HEMOGLOBIN 11.3 g/dl (13.5-17.5); LYMPH # 1.3 10^3/uL (1.5-5.0); MEAN CORPUSCULAR HEMOGLOBIN 29.2 pg (27.0-33.0); MEAN CORPUSCULAR HGB CONC 32.5 g/dl (32.0-36.5); MEAN CORPUSCULAR VOLUME 89.9 fl (80.0-96.0); MONO # 0.6 10^3/uL (0.0-0.8); MONO % 4.3 % (2.0-8.0); NEUTROPHILS # 12.6 10^3/uL (1.5-8.5); NEUTROPHILS % 85.6 % (36.0-66.0); PLATELET COUNT, AUTOMATED 321 10^3/uL (150-450); RED BLOOD COUNT 3.87 10^6/uL (4.30-6.10); WHITE BLOOD COUNT 14.8 10^3/uL (4.0-10.0)
[2020-11-09 07:42] LABS: INR 1.01; PROTHROMBIN TIME 13.7 SECONDS (12.7-14.5)
[2020-11-09 07:43] LABS: PARTIAL THROMBOPLASTIN TIME 42.3 SECONDS (25.9-37.0)
[2020-11-09] MEDS: FORMOTEROL FUMARATE 20 MCG/2 ML INHALATION SOLUTION (PERFOROMIST) INH SCH ×2 (07:56→20:50)
[2020-11-09] MEDS: BUDESONIDE 0.5 MG/2 ML INHALATION SUSPENSION INH SCH ×2 (07:57→20:50)
[2020-11-09 08:02] LABS: ALBUMIN 2.7 GM/DL (3.2-5.2); ALT/SGPT 102 U/L (12-78); BILIRUBIN,DIRECT 0.3 MG/DL (0.0-0.2); BILIRUBIN,TOTAL 0.8 MG/DL (0.2-1.0); BLOOD UREA NITROGEN 19 MG/DL (7-18); CALCIUM LEVEL 8.5 MG/DL (8.8-10.2); CARBON DIOXIDE LEVEL 26 MEQ/L (21-32); CHLORIDE LEVEL 109 MEQ/L (98-107); CPK CREATINE PHOSPHOKINASE 506 U/L (39-308); CREATININE FOR GFR 0.76 MG/DL (0.70-1.30); FERRITIN 2890 NG/ML (26-388); GLOMERULAR FILTRATION RATE > 60.0 (>49); GLUCOSE, FASTING 193 MG/DL (70-100); LDH LACTATE DEHYDROGENASE 568 U/L (87-241); MAGNESIUM LEVEL 2.3 MG/DL (1.8-2.4); NT-PRO BNP 407 PG/ML (<125); POTASSIUM SERUM 3.9 MEQ/L (3.5-5.1); SODIUM LEVEL 141 MEQ/L (136-145); TOTAL PROTEIN 6.3 GM/DL (6.4-8.2); TROPONIN I < 0.02 NG/ML (< 0.10)
[2020-11-09] MEDS: PANTOPRAZOLE 40MG TAB (PROTONIX) PO SCH ×2 (08:50→21:44)
[2020-11-09] MEDS: ASPIRIN 81MG ENTERIC TABLET PO SCH (08:50)
[2020-11-09] MEDS: guaiFENesin ER 600 MG TAB PO SCH (08:50)
[2020-11-09] MEDS: ENOXAPARIN 60MG/0.6ML SYRINGE (J1650 PER 10MG) SC SCH ×2 (08:52→21:45)
--- NOTE | 2020-11-09 11:46 | IPNPDOC ---
Subjective Date Seen The patient was seen on 11/09/20. Subjective Chief Complaint/HPI No issues overnight, shortness of breath is better however still continues to have a dry irritating cough. No fever or chills. Good appetite. Objective Physical Examination General Exam: Positive: Alert, Cooperative, No Acute Distress Eye Exam: Positive: PERRLA, Conjunctiva & lids normal, EOMI; Negative: Sclera icteric ENT Exam: Positive: Atraumatic, Mucous membr. moist/pink, Pharynx Normal Neck Exam: Positive: Supple; Negative: JVD, thyromegaly Chest Exam: Positive: Diminished, Other (Bilateral diffuse crackles); Negative: Rales, Wheezing Heart Exam: Positive: Rate Normal, Regular Rhythm, Normal S1, Normal S2; Negative: Murmurs, Rubs Abdomen Exam: Positive: Normal bowel sounds, Soft; Negative: Tenderness Extremity Exam: Negative: Clubbing, Cyanosis, Edema Skin Exam: Positive: Nl turgor and temperature; Negative: Breakdown, Lesion Neuro Exam: Positive: Normal Speech, Strength at 5/5 X4 ext, Normal Tone Psych Exam: Positive: Memory Intact, Oriented x 3 Assessment /Plan Assessment 70-year-old male with history of asthma, DREW on CPAP, BPH status post seeding presented to the emergency room with 7 days history of cough cold congestion malaise body aches flulike symptoms. His had COVID from 4 to 5 days prior to his symptoms. For the past 4 days he felt that his asthma has been acting up he was having shortness of breath, wheezing. He has been using nebulizers every 4 hours and checking his oxygen saturation. His oxygen has been ranging from 82% to 89% at home. This morning he woke up and his oxygen saturation was 82% he used his nebulizer without any improvement. He felt that his asthma exacerbatio n was not getting any better so he came to the emergency room. He is unvaccinated for the Covid. In the ED he was found to be Covid positive. Chest x-ray shows bilateral pulmonary infiltrates. He is admitted for Covid pneumonia with hypoxia. Covid pneumonia with hypoxia We will give steroids, remdesivir, albuterol. Will give aspirin, Lovenox. Awake pronation Continuous pulse oximeter Incentive spirometry Inflammatory markers are improving. Transaminitis Due to Covid Improving Asthma Exacerbation due to Covid pneumonia We will continue with steroids, Xopenex, Perforomist and budesonide GI prophylaxis PPI twice daily DVT prophylaxis Lovenox twice daily Plan/VTE VTE Prophylaxis Ordered?: Yes VS, I&O, 24H, Fishbone Vital Signs/I&O Vital Signs Date Time Temp Pulse Resp B/P (MAP) Pulse Ox O2 Delivery O2 Flow Rate FiO2 11/09/20 08:00 4.0 11/09/20 04:24 97.3 60 20 158/64 (95) 94 Nasal Cannula I&O- Last 24 Hours up to 6 AM 11/09/20 06:00 Intake Total 1920 ml Output Total 2150 ml Balance -230 ml Laboratory Data 24H LABS Laboratory Tests 2 11/09/20 06:58: Immature Granulocyte % (Auto) 1.0, Neutrophils (%) (Auto) 85.6H, Lymphocytes (%) (Auto) 9.0L, Monocytes (%) (Auto) 4.3, Eosinophils (%) (Auto) 0.0, Basophils (%) (Auto) 0.1, Neutrophils # (Auto) 12.6H, Lymphocytes # (Auto) 1.3L, Monocytes # (Auto) 0.6, Eosinophils # (Auto) 0.0, Basophils # (Auto) 0.0, Nucleated Red Blood Cells % (auto) 0.0, Prothrombin Time 13.7, Prothromb Time International Ratio 1.01, Activated Partial Thromboplast Time 42.3H, Fibrinogen 474H, Anion Gap 6L, Glomerular Filtration Rate > 60.0, Calcium Level 8.5L, Magnesium Level 2.3, Ferritin 2890H, Total Bilirubin 0.8, Direct Bilirubin 0.3H, Aspartate Amino Transf (AST/SGOT) 75H, Alanine Aminotransferase (ALT/SGPT) 102H, Alkaline Phosphatase 55, Lactate Dehydrogenase 568H, Total Creatine Kinase 506H, Troponin I < 0.02, EH-Dho-H-Type Natriuretic Peptide 407H, Total Protein 6.3L, Albumin 2.7L, Albumin/Globulin Ratio 0.8 CBC/BMP Laboratory Tests 11/09/20 06:58 Microbiology Microbiology 11/07/20 Blood Culture - Preliminary, Resulted No growth after 24 hours . All specim... 11/07/20 Blood Culture - Preliminary, Resulted No growth after 24 hours . All specim... Shantel Meadows MD Nov 09, 2020 11:46
[2020-11-09 14:00] VITALS: BP 130/82
[2020-11-09] MEDS: SODIUM CHLORIDE 0.9% INJ 10 ML SYR IV SCH (14:45)
[2020-11-09] MEDS: REMDESIVIR 100 MG in NS 250 ML IV SCH (14:45)
[2020-11-09 22:00] VITALS: BP 124/60
[2020-11-10] MEDS: LEVALBUTEROL 1.25 MG/0.5 ML CONCENTRATE NEB INH SCH ×6 (00:14→19:20)
[2020-11-10] MEDS: methylPREDNISolone 40MG 1ML VIAL IV SCH ×4 (02:14→21:11)
[2020-11-10 06:00] VITALS: BP 138/68
[2020-11-10 08:15] LABS: HEMATOCRIT 36.2 % (42.0-52.0); HEMOGLOBIN 11.6 g/dl (13.5-17.5); MEAN CORPUSCULAR HEMOGLOBIN 29.2 pg (27.0-33.0); MEAN CORPUSCULAR VOLUME 91.2 fl (80.0-96.0); PLATELET COUNT, AUTOMATED 402 10^3/uL (150-450); RED BLOOD COUNT 3.97 10^6/uL (4.30-6.10); WHITE BLOOD COUNT 17.7 10^3/uL (4.0-10.0)
[2020-11-10] MEDS: FORMOTEROL FUMARATE 20 MCG/2 ML INHALATION SOLUTION (PERFOROMIST) INH SCH ×2 (08:25→19:20)
[2020-11-10] MEDS: BUDESONIDE 0.5 MG/2 ML INHALATION SUSPENSION INH SCH ×2 (08:25→19:20)
[2020-11-10 08:42] LABS: BLOOD UREA NITROGEN 19 MG/DL (7-18); CALCIUM LEVEL 8.7 MG/DL (8.8-10.2); CARBON DIOXIDE LEVEL 26 MEQ/L (21-32); CHLORIDE LEVEL 109 MEQ/L (98-107); GLOMERULAR FILTRATION RATE > 60.0 (>49); GLUCOSE, FASTING 177 MG/DL (70-100); MAGNESIUM LEVEL 2.2 MG/DL (1.8-2.4); POTASSIUM SERUM 3.8 MEQ/L (3.5-5.1); SODIUM LEVEL 143 MEQ/L (136-145)
[2020-11-10 09:21] LABS: ANISOCYTOSIS 1+; ATYPICAL LYMPH 3 % (0-5); LYMPHOCYTES 6 % (16-44); MONOCYTES 3 % (0-5); NEUTROPHILS 88 % (28-66); PLATELET ESTIMATE NORMAL (NORMAL)
[2020-11-10] MEDS: ENOXAPARIN 60MG/0.6ML SYRINGE (J1650 PER 10MG) SC SCH ×2 (09:47→21:09)
[2020-11-10] MEDS: ASPIRIN 81MG ENTERIC TABLET PO SCH (09:47)
[2020-11-10] MEDS: PANTOPRAZOLE 40MG TAB (PROTONIX) PO SCH ×2 (09:47→21:09)
--- NOTE | 2020-11-10 10:49 | IPNPDOC ---
Text Note Date of Service The patient was seen on 11/10/20. NOTE Subjective: Patient seen and examined at bedside. No acute overnight events reported. Patient voices no new medical complaints this morning. Objective: Vital Signs: reviewed and within normal limits General: NAD, sitting comfortably at edge of bed HEENT: NC/AT, EOMI Respiratory: Speaking in full sentences easily, no accessory muscle use Abd: Obese, nondistended Ext: no edema Skin: no rashes MSK: full ROM at large joints Neuro: no gross focal deficits Psych: AAOx3 A/P: 70-year-old male with PMHx including asthma, DREW/CPAP, BPH s/p seeding presented to ED for one week upper respiratory symptoms, malaise, myalgia, and flulike symptoms. His had COVID from 4 to 5 days prior to his symptoms. he felt that his asthma has been acting up he was having shortness of breath, wheezing. He has been using nebulizers every 4 hours and checking his oxygen saturation. His oxygen has been ranging from 82% to 89% at home. He is unvaccinated for Covid. In the ED he was found to be Covid positive. Chest x-ray shows bilateral pulmonary infiltrates. He is admitted for Covid pneumonia with hypoxia. #Covid pneumonia with hypoxia - continue steroids, remdesivir, albuterol. - continue aspirin, Lovenox. - Awake pronation - Continuous pulse oximeter - Incentive spirometry #Transaminitis Due to Covid Improving #Asthma Exacerbation due to Covid pneumonia We will continue with steroids, Xopenex, Perforomist and budesonide #GI prophylaxis PPI twice daily #DVT prophylaxis Lovenox twice daily VS,Fishbone, I+O VS, Fishbone, I+O Laboratory Tests 11/10/20 07:37 Vital Signs Date Time Temp Pulse Resp B/P (MAP) Pulse Ox O2 Delivery O2 Flow Rate FiO2 11/10/20 09:52 92 Nasal Cannula 4.0 11/10/20 06:00 97.0 60 16 138/68 (91) I&O- Last 24 Hours up to 6 AM 11/10/20 06:00 Intake Total 1350 ml Output Total 400 ml Balance 950 ml EDGAR GARZA MD Nov 10, 2020 10:49
[2020-11-10] MEDS: REMDESIVIR 100 MG in NS 250 ML IV SCH (14:16)
[2020-11-10 14:29] VITALS: BP 141/65
[2020-11-10] MEDS: SODIUM CHLORIDE 0.9% INJ 10 ML SYR IV SCH (15:10)
[2020-11-10 22:00] VITALS: BP 160/78
[2020-11-11] MEDS: LEVALBUTEROL 1.25 MG/0.5 ML CONCENTRATE NEB INH SCH ×5 (01:07→19:34)
[2020-11-11] MEDS: methylPREDNISolone 40MG 1ML VIAL IV SCH ×4 (01:26→19:46)
[2020-11-11 06:10] VITALS: BP 154/78
[2020-11-11] MEDS: BUDESONIDE 0.5 MG/2 ML INHALATION SUSPENSION INH SCH ×2 (07:28→19:34)
[2020-11-11] MEDS: FORMOTEROL FUMARATE 20 MCG/2 ML INHALATION SOLUTION (PERFOROMIST) INH SCH ×2 (07:29→19:34)
[2020-11-11 07:32] LABS: HEMATOCRIT 39.4 % (42.0-52.0); HEMOGLOBIN 12.7 g/dl (13.5-17.5); MEAN CORPUSCULAR HEMOGLOBIN 29.1 pg (27.0-33.0); MEAN CORPUSCULAR HGB CONC 32.2 g/dl (32.0-36.5); MEAN CORPUSCULAR VOLUME 90.2 fl (80.0-96.0); PLATELET COUNT, AUTOMATED 472 10^3/uL (150-450); RED BLOOD COUNT 4.37 10^6/uL (4.30-6.10); WHITE BLOOD COUNT 20.1 10^3/uL (4.0-10.0)
[2020-11-11 07:37] LABS: INR 1.03; PROTHROMBIN TIME 13.9 SECONDS (12.7-14.5)
[2020-11-11 07:38] LABS: PARTIAL THROMBOPLASTIN TIME 33.7 SECONDS (25.9-37.0)
[2020-11-11 08:07] LABS: ALBUMIN 2.6 GM/DL (3.2-5.2); ALT/SGPT 332 U/L (12-78); BILIRUBIN,DIRECT 0.3 MG/DL (0.0-0.2); BLOOD UREA NITROGEN 19 MG/DL (7-18); CALCIUM LEVEL 8.4 MG/DL (8.8-10.2); CARBON DIOXIDE LEVEL 31 MEQ/L (21-32); CHLORIDE LEVEL 106 MEQ/L (98-107); CPK CREATINE PHOSPHOKINASE 272 U/L (39-308); CREATININE FOR GFR 0.89 MG/DL (0.70-1.30); FERRITIN 1796 NG/ML (26-388); GLOMERULAR FILTRATION RATE > 60.0 (>49); GLUCOSE, FASTING 164 MG/DL (70-100); LDH LACTATE DEHYDROGENASE 604 U/L (87-241); MAGNESIUM LEVEL 2.4 MG/DL (1.8-2.4); NT-PRO BNP 817 PG/ML (<125); SODIUM LEVEL 140 MEQ/L (136-145); TOTAL PROTEIN 6.7 GM/DL (6.4-8.2); TROPONIN I < 0.02 NG/ML (< 0.10)
[2020-11-11 09:09] LABS: LYMPHOCYTES 8 % (16-44); MONOCYTES 4 % (0-5); NEUTROPHILS 87 % (28-66); PLATELET ESTIMATE NORMAL (NORMAL)
[2020-11-11] MEDS: PANTOPRAZOLE 40MG TAB (PROTONIX) PO SCH ×2 (09:35→19:45)
[2020-11-11] MEDS: ASPIRIN 81MG ENTERIC TABLET PO SCH (09:35)
[2020-11-11] MEDS: ENOXAPARIN 60MG/0.6ML SYRINGE (J1650 PER 10MG) SC SCH ×2 (09:38→19:46)
--- NOTE | 2020-11-11 13:27 | IPNPDOC ---
Text Note Date of Service The patient was seen on 11/11/20. NOTE Subjective: Patient seen and examined at bedside. No acute overnight events reported. Patient voices no new medical complaints this morning. He is concerned about his labs. Objective: Vital Signs: reviewed and within normal limits General: NAD, lying comfortably in bed, anxious HEENT: NC/AT, EOMI Respiratory: Speaking in full sentences easily, no accessory muscle use Abd: Obese, nondistended Ext: no edema Skin: no rashes MSK: full ROM at large joints Neuro: no gross focal deficits Psych: AAOx3 A/P: 70-year-old male with PMHx including asthma, DREW/CPAP, BPH s/p seeding presented to ED for one week upper respiratory symptoms, malaise, myalgia, and flulike symptoms. His had COVID from 4 to 5 days prior to his symptoms. he felt that his asthma has been acting up he was having shortness of breath, wheezing. He has been using nebulizers every 4 hours and checking his oxygen saturation. His oxygen has been ranging from 82% to 89% at home. He is unvaccinated for Covid. In the ED he was found to be Covid positive. Chest x-ray shows bilateral pulmonary infiltrates. He is admitted for Covid pneumonia with hypoxia. #Covid pneumonia with hypoxia - continue steroids, remdesivir, albuterol. - continue aspirin, Lovenox. - Awake pronation - Continuous pulse oximeter - Incentive spirometry #Transaminitis Due to Covid - continue to monitor #Asthma Exacerbation due to Covid pneumonia We will continue with steroids, Xopenex, Perforomist and budesonide #GI prophylaxis PPI twice daily #DVT prophylaxis Lovenox twice daily Disposition: pending clinical improvement VS,Markellbone, I+O VS, Fishbone, I+O Laboratory Tests 11/11/20 07:06 Vital Signs Date Time Temp Pulse Resp B/P (MAP) Pulse Ox O2 Delivery O2 Flow Rate FiO2 11/11/20 10:17 4.0 11/11/20 06:10 97.6 62 20 154/78 (103) 93 Nasal Cannula I&O- Last 24 Hours up to 6 AM 11/11/20 06:00 Intake Total 1690 ml Balance 1690 ml EDGAR GARZA MD Nov 11, 2020 13:27
[2020-11-11 14:34] VITALS: BP 140/60
[2020-11-11] MEDS: SODIUM CHLORIDE 0.9% INJ 10 ML SYR IV SCH (15:03)
[2020-11-11] MEDS: REMDESIVIR 100 MG in NS 250 ML IV SCH (15:03)
[2020-11-11 19:51] VITALS: BP 130/58
[2020-11-12] MEDS: methylPREDNISolone 40MG 1ML VIAL IV SCH ×4 (01:42→20:20)
[2020-11-12] MEDS: LEVALBUTEROL 1.25 MG/0.5 ML CONCENTRATE NEB INH SCH ×6 (04:00→20:00)
[2020-11-12 05:27] VITALS: BP 142/50
[2020-11-12] MEDS: BUDESONIDE 0.5 MG/2 ML INHALATION SUSPENSION INH SCH ×2 (07:59→20:25)
[2020-11-12] MEDS: FORMOTEROL FUMARATE 20 MCG/2 ML INHALATION SOLUTION (PERFOROMIST) INH SCH ×2 (07:59→20:25)
[2020-11-12 08:02] LABS: HEMATOCRIT 38.3 % (42.0-52.0); HEMOGLOBIN 12.5 g/dl (13.5-17.5); MEAN CORPUSCULAR HEMOGLOBIN 29.3 pg (27.0-33.0); MEAN CORPUSCULAR HGB CONC 32.6 g/dl (32.0-36.5); MEAN CORPUSCULAR VOLUME 89.9 fl (80.0-96.0); PLATELET COUNT, AUTOMATED 507 10^3/uL (150-450); RED BLOOD COUNT 4.26 10^6/uL (4.30-6.10); WHITE BLOOD COUNT 20.9 10^3/uL (4.0-10.0)
[2020-11-12 08:27] LABS: ALBUMIN 2.6 GM/DL (3.2-5.2); ALT/SGPT 301 U/L (12-78); BLOOD UREA NITROGEN 18 MG/DL (7-18); CALCIUM LEVEL 8.9 MG/DL (8.8-10.2); CARBON DIOXIDE LEVEL 31 MEQ/L (21-32); CHLORIDE LEVEL 104 MEQ/L (98-107); CREATININE FOR GFR 0.81 MG/DL (0.70-1.30); GLOMERULAR FILTRATION RATE > 60.0 (>49); GLUCOSE, FASTING 160 MG/DL (70-100); MAGNESIUM LEVEL 2.2 MG/DL (1.8-2.4); POTASSIUM SERUM 3.9 MEQ/L (3.5-5.1); SODIUM LEVEL 141 MEQ/L (136-145); TOTAL PROTEIN 6.5 GM/DL (6.4-8.2)
[2020-11-12 08:59] LABS: ATYPICAL LYMPH 2 % (0-5); LYMPHOCYTES 8 % (16-44); METAMYELOCYTES 2 % (0-0); MONOCYTES 7 % (0-5); MYELOCYTES 1 % (0-0); NEUTROPHILS 80 % (28-66); PLATELET ESTIMATE INCREASED (NORMAL)
[2020-11-12] MEDS: ASPIRIN 81MG ENTERIC TABLET PO SCH (09:15)
[2020-11-12] MEDS: PANTOPRAZOLE 40MG TAB (PROTONIX) PO SCH ×2 (09:15→20:20)
[2020-11-12] MEDS: ENOXAPARIN 60MG/0.6ML SYRINGE (J1650 PER 10MG) SC SCH ×2 (09:15→20:19)
[2020-11-12 12:33] VITALS: O2SAT 92
[2020-11-12 14:29] VITALS: BP 153/70
[2020-11-12] MEDS: SODIUM CHLORIDE 0.9% INJ 10 ML SYR IV SCH (14:34)
[2020-11-12] MEDS: REMDESIVIR 100 MG in NS 250 ML IV SCH (14:34)
--- NOTE | 2020-11-12 15:44 | IPNPDOC ---
Text Note Date of Service The patient was seen on 11/12/20. NOTE Subjective: Patient seen and examined at bedside. No acute overnight events reported. Patient voices no new medical complaints this morning. Objective: Vital Signs: reviewed General: NAD, lying comfortably in bed HEENT: NC/AT, EOMI Respiratory: Speaking in full sentences easily, no accessory muscle use Abd: Obese, nondistended Ext: no edema Skin: no rashes MSK: full ROM at large joints Neuro: no gross focal deficits Psych: AAOx3 A/P: 70-year-old male with PMHx including asthma, DREW/CPAP, BPH s/p seeding presented to ED for one week upper respiratory symptoms, malaise, myalgia, and flulike symptoms. His had COVID from 4 to 5 days prior to his symptoms. he felt that his asthma has been acting up he was having shortness of breath, wheezing. He has been using nebulizers every 4 hours and checking his oxygen saturation. His oxygen has been ranging from 82% to 89% at home. He is unvaccinated for Covid. In the ED he was found to be Covid positive. Chest x-ray shows bilateral pulmonary infiltrates. He is admitted for Covid pneumonia with hypoxia. #Covid pneumonia with hypoxia - continue steroids, remdesivir, albuterol. - continue aspirin, Lovenox. - Awake pronation - Continuous pulse oximeter - Incentive spirometry #Transaminitis Due to Covid - improving - continue to monitor #Asthma Exacerbation due to Covid pneumonia We will continue with steroids, Xopenex, Perforomist and budesonide #GI prophylaxis PPI twice daily #DVT prophylaxis Lovenox twice daily Disposition: pending clinical improvement VSBetina, I+O VS, Betina, I+O Laboratory Tests 11/12/20 07:28 Vital Signs Date Time Temp Pulse Resp B/P (MAP) Pulse Ox O2 Delivery O2 Flow Rate FiO2 11/12/20 14:29 97.8 63 16 153/70 (97) 94 Nasal Cannula 4.0 I&O- Last 24 Hours up to 6 AM 11/12/20 05:59 Intake Total 2370 ml Balance 2370 ml EDGAR GARZA MD Nov 12, 2020 15:44
[2020-11-12 22:00] VITALS: BP 148/56
[2020-11-13] MEDS: LEVALBUTEROL 1.25 MG/0.5 ML CONCENTRATE NEB INH SCH ×4 (00:29→10:31)
[2020-11-13] MEDS: methylPREDNISolone 40MG 1ML VIAL IV SCH ×2 (01:46→08:24)
[2020-11-13 06:00] VITALS: BP 150/60
[2020-11-13 06:46] LABS: HEMATOCRIT 35.2 % (42.0-52.0); HEMOGLOBIN 11.6 g/dl (13.5-17.5); MEAN CORPUSCULAR HEMOGLOBIN 29.1 pg (27.0-33.0); MEAN CORPUSCULAR VOLUME 88.4 fl (80.0-96.0); PLATELET COUNT, AUTOMATED 496 10^3/uL (150-450); RED BLOOD COUNT 3.98 10^6/uL (4.30-6.10); WHITE BLOOD COUNT 18.7 10^3/uL (4.0-10.0)
[2020-11-13 06:58] LABS: INR 1.07; PROTHROMBIN TIME 14.3 SECONDS (12.7-14.5)
[2020-11-13 06:59] LABS: PARTIAL THROMBOPLASTIN TIME 31.1 SECONDS (25.9-37.0)
[2020-11-13 07:19] LABS: ALBUMIN 2.4 GM/DL (3.2-5.2); ALT/SGPT 228 U/L (12-78); BILIRUBIN,DIRECT 0.2 MG/DL (0.0-0.2); BILIRUBIN,TOTAL 0.7 MG/DL (0.2-1.0); BLOOD UREA NITROGEN 22 MG/DL (7-18); CALCIUM LEVEL 8.5 MG/DL (8.8-10.2); CARBON DIOXIDE LEVEL 27 MEQ/L (21-32); CHLORIDE LEVEL 105 MEQ/L (98-107); CPK CREATINE PHOSPHOKINASE 131 U/L (39-308); CREATININE FOR GFR 0.81 MG/DL (0.70-1.30); GLOMERULAR FILTRATION RATE > 60.0 (>49); GLUCOSE, FASTING 266 MG/DL (70-100); LDH LACTATE DEHYDROGENASE 414 U/L (87-241); MAGNESIUM LEVEL 2.2 MG/DL (1.8-2.4); POTASSIUM SERUM 4.4 MEQ/L (3.5-5.1); SODIUM LEVEL 140 MEQ/L (136-145); TOTAL PROTEIN 5.8 GM/DL (6.4-8.2); TROPONIN I < 0.02 NG/ML (< 0.10)
[2020-11-13 07:20] LABS: FERRITIN 913 NG/ML (26-388); NT-PRO BNP 353 PG/ML (<125)
[2020-11-13 07:36] LABS: ATYPICAL LYMPH 5 % (0-5); LYMPHOCYTES 6 % (16-44); MONOCYTES 2 % (0-5); NEUTROPHILS 83 % (28-66); PLATELET ESTIMATE INCREASED (NORMAL)
[2020-11-13] MEDS: BUDESONIDE 0.5 MG/2 ML INHALATION SUSPENSION INH SCH (07:48)
[2020-11-13] MEDS: FORMOTEROL FUMARATE 20 MCG/2 ML INHALATION SOLUTION (PERFOROMIST) INH SCH (07:48)
[2020-11-13] MEDS: ASPIRIN 81MG ENTERIC TABLET PO SCH (08:24)
[2020-11-13] MEDS: ENOXAPARIN 60MG/0.6ML SYRINGE (J1650 PER 10MG) SC SCH (08:24)
[2020-11-13] MEDS: PANTOPRAZOLE 40MG TAB (PROTONIX) PO SCH (08:24)
[2020-11-13] MEDS ORDERED: BUDE0.5S6 INH (12:16)
[2020-11-13] MEDS ORDERED: ASPI-551 PO (12:16)
[2020-11-13] MEDS ORDERED: PERF20NE2 INH (12:16)
[2020-11-13] MEDS ORDERED: PANT40TA29 PO (12:16)
[2020-11-13] MEDS ORDERED: BENZ-18 PO (12:16)
[2020-11-13] MEDS ORDERED: PRED10TA2 PO (12:16)
== END 2020-11-13 18:30 | disposition home or self-care (01) | DRG 177 ==
LOC: M ED 11:47 → EDBD 11:47 → M ED INP 14:08 → ENRESERV 14:36 → M 4MAIN 17:55
PROVIDERS: ADMIT Internal Medicine Nephrology; ATTEND Internal Medicine Nephrology
PROC: 3E0333Z Introduction of Anti-inflammatory into Peripheral Vein, Percutaneous Approach (ICD-10-PCS; principal; 2020-11-07)
PROC: XW033E5 Introduction of Remdesivir Anti-infective into Peripheral Vein, Percutaneous Approach, New Technology Group 5 (ICD-10-PCS; 2020-11-07)
DX: U07.1 COVID-19 (principal); J12.82 Pneumonia due to coronavirus disease 2019; J45.901 Unspecified asthma with (acute) exacerbation; G47.33 Obstructive sleep apnea (adult) (pediatric); N40.0 Benign prostatic hyperplasia without lower urinary tract symptoms; Z79.899 Other long term (current) drug therapy; Z88.1 Allergy status to other antibiotic agents; Z88.8 Allergy status to other drugs, medicaments and biological substances; Z90.49 Acquired absence of other specified parts of digestive tract; Z98.1 Arthrodesis status; R09.02 Hypoxemia; R74.01 Elevation of levels of liver transaminase levels

== ENCOUNTER → 2020-12-08 | Outpatient (CLI) | payer MEDICARE, OTHER ==
[~2020-12-08] MED LIST changes: +ACET-683 PO; +ASPI-551 PO; +BENZ-18 PO; +BUDE0.5S6 INH; +IBUP-1720 PO; +ISOVUE-370 76% 100ML VIAL As Ordered ONE; +PANT40TA29 PO; +PERF20NE2 INH; +PRED10TA2 PO
--- NOTE | 2020-12-08 17:19 | REPVR ---
PROCEDURE INFORMATION: Exam: CTA Chest With Contrast Exam date and time: 12/08/2020 4:25 PM Age: 70 years old Clinical indication: Chest wall pain; Additional info: SOB, pe protocol TECHNIQUE: Imaging protocol: Computed tomographic angiography of the chest with contrast. 3D rendering (Not supervised by radiologist): MIP and/or 3D reconstructed images were created by the technologist. Radiation optimization: All CT scans at this facility use at least one of these dose optimization techniques: automated exposure control; mA and/or kV adjustment per patient size (includes targeted exams where dose is matched to clinical indication); or iterative reconstruction. Contrast material: ISO 370; Contrast volume: 75 ml; Contrast route: INTRAVENOUS (IV); COMPARISON: CR PORTABLE CHEST X-RAY 11/07/2020 12:17 PM FINDINGS: Pulmonary arteries: No filling defects within the main, lobar, segmental, and subsegmental pulmonary arterial branches. Aorta: No aortic aneurysm. No evidence of dissection. Lungs: Diffuse consolidative and ground-glass opacities throughout both upper and lower lobes, concerning for multifocal pneumonia. Linear atelectasis in both lower lobes. Pleural spaces: Unremarkable. No pneumothorax. No pleural effusion. Heart: Unremarkable. No pericardial effusion. Lymph nodes: No enlarged lymph nodes. Diaphragm: Small hiatal hernia. Liver: Diffuse hepatic steatosis. Gallbladder and bile ducts: Partially visualized single large 2.3 cm calcified gallstone. Bones/joints: No acute osseus lesion or fracture. Soft tissues: Unremarkable. IMPRESSION: 1. Findings concerning for multifocal pneumonia. 2. No CTA evidence of pulmonary embolism. 3. Other chronic findings, as above. Electronically signed by: Liam Hall On 12/08/2020 17:19:23 PM
== END ==
LOC: M RAD 15:29
PROVIDERS: ATTEND Internal Medicine Pulmonary Disease
DX: R06.02 Shortness of breath (principal); R09.02 Hypoxemia; J98.11 Atelectasis; R91.8 Other nonspecific abnormal finding of lung field
CPT/HCPCS: 71275; Q9967

== ENCOUNTER → 2020-12-29 | Outpatient (REF) | payer MEDICARE, OTHER ==
[~2020-12-29] MED LIST changes: -ISOVUE-370 76% 100ML VIAL As Ordered ONE
== END ==
LOC: M SFHCCLAY 12:13
PROVIDERS: ATTEND Family Medicine
DX: U09.9 Post COVID-19 condition, unspecified (principal)
CPT/HCPCS: 86769; G0463

== ENCOUNTER → 2021-03-11 | Outpatient (REF) | payer MEDICARE, OTHER ==
[2021-03-11 13:55] LABS: HEMOGLOBIN A1c 5.6 %
[2021-03-11 14:26] LABS: ALT/SGPT 37 U/L (12-78); BILIRUBIN,TOTAL 0.8 MG/DL (0.2-1.0); BLOOD UREA NITROGEN 21 MG/DL (7-18); CALCIUM LEVEL 9.6 MG/DL (8.8-10.2); CARBON DIOXIDE LEVEL 28 MEQ/L (21-32); CHLORIDE LEVEL 108 MEQ/L (98-107); CHOLESTEROL LEVEL 202 MG/DL (<200); CHOLESTEROL RISK RATIO 4.809 (<5); CREATININE FOR GFR 0.92 MG/DL (0.70-1.30); GLOMERULAR FILTRATION RATE > 60.0 (>49); GLUCOSE, FASTING 120 MG/DL (70-100); HDL CHOLESTEROL 42 MG/DL (>40); LDL CHOLESTEROL 138 MG/DL (<100); NON-HDL-C 160 MG/DL; POTASSIUM SERUM 4.2 MEQ/L (3.5-5.1); SODIUM LEVEL 142 MEQ/L (136-145); TRIGLYCERIDES LEVEL 108 MG/DL (<150)
== END ==
LOC: M SFHCCLAY 07:50
PROVIDERS: ATTEND Family Medicine
DX: R73.01 Impaired fasting glucose (principal); E78.5 Hyperlipidemia, unspecified

== ENCOUNTER → 2022-03-01 | Outpatient (REF) | payer MEDICARE, OTHER ==
[2022-03-01 18:22] LABS: ALKALINE PHOSPHATASE 59 U/L (46-116); ALT/SGPT 31 U/L (7.0-40); AST/SGOT 20 U/L (<34); BILIRUBIN,TOTAL 0.9 MG/DL (0.3-1.2); BLOOD UREA NITROGEN 15 MG/DL (9-23); CALCIUM LEVEL 9.4 MG/DL (8.3-10.6); CARBON DIOXIDE LEVEL 27 MMOL/L (20-31); CHLORIDE LEVEL 102 MMOL/L (98-107); CHOLESTEROL LEVEL 165 MG/DL (<200); CHOLESTEROL RISK RATIO 3.31 (<5); CREATININE FOR GFR 0.83 MG/DL (0.70-1.30); GLOMERULAR FILTRATION RATE > 60.0 (>42); GLUCOSE, FASTING 79 MG/DL (74-106); HDL CHOLESTEROL 49.8 MG/DL (>40); LDL CHOLESTEROL 91.4 MG/DL (<100); NON-HDL-C 115 MG/DL; POTASSIUM SERUM 3.9 MMOL/L (3.5-5.1); SODIUM LEVEL 139 MMOL/L (136-145); TOTAL PROTEIN 7.1 G/DL (5.7-8.2); TRIGLYCERIDES LEVEL 119 MG/DL (<150)
[2022-03-01 19:18] LABS: HEMOGLOBIN A1c 4.8 % (4.0-6.0)
== END ==
LOC: M SFHCCLAY 14:40
PROVIDERS: ATTEND Family Medicine
DX: R73.01 Impaired fasting glucose (principal)

== ENCOUNTER → 2022-10-18 | Outpatient (REF) | payer MEDICARE, OTHER ==
[2022-10-18 11:26] LABS: BASO # 0.1 10^3/uL (0.0-0.2); BASO % 0.9 % (0.0-1.0); EOS # 0.2 10^3/uL (0.0-0.5); EOS % 2.7 % (0.0-3.0); HEMATOCRIT 40.8 % (42.0-52.0); HEMOGLOBIN 13.3 g/dl (13.5-17.5); LYMPH # 2.9 10^3/uL (1.5-5.0); LYMPH % 35.1 % (24.0-44.0); MEAN CORPUSCULAR HEMOGLOBIN 29.7 pg (27.0-33.0); MEAN CORPUSCULAR HGB CONC 32.6 g/dl (32.0-36.5); MEAN CORPUSCULAR VOLUME 91.1 fl (80.0-96.0); MONO # 0.6 10^3/uL (0.0-0.8); MONO % 7.8 % (2.0-8.0); NEUTROPHILS # 4.4 10^3/uL (1.5-8.5); NEUTROPHILS % 53.4 % (36.0-66.0); PLATELET COUNT, AUTOMATED 309 10^3/uL (150-450); RED BLOOD COUNT 4.48 10^6/uL (4.30-6.10); WHITE BLOOD COUNT 8.2 10^3/uL (4.0-10.0)
[2022-10-18 11:43] LABS: FREE T4 0.95 NG/DL (0.89-1.76); THYROID STIMULATING HORMONE 3.686 uIU/ML (0.55-4.78)
[2022-10-18 12:05] LABS: COLLAGEN ADP 129 SECONDS (56-103); COLLAGEN EPINEPHRINE 173 SECONDS (74-162)
== END ==
LOC: M SFHCCLAY 07:49
PROVIDERS: ATTEND Family Medicine
DX: K21.9 Gastro-esophageal reflux disease without esophagitis (principal); R00.2 Palpitations; R23.3 Spontaneous ecchymoses

== ENCOUNTER → 2023-04-05 | Outpatient (REF) | payer MEDICARE, OTHER ==
[2023-04-05 11:59] LABS: HEMATOCRIT 42.5 % (42.0-52.0); HEMOGLOBIN 13.9 g/dl (13.5-17.5); MEAN CORPUSCULAR HEMOGLOBIN 29.6 pg (27.0-33.0); MEAN CORPUSCULAR HGB CONC 32.7 g/dl (32.0-36.5); MEAN CORPUSCULAR VOLUME 90.6 fl (80.0-96.0); PLATELET COUNT, AUTOMATED 312 10^3/uL (150-450); RED BLOOD COUNT 4.69 10^6/uL (4.30-6.10); WHITE BLOOD COUNT 8.8 10^3/uL (4.0-10.0)
[2023-04-05 12:16] LABS: INR 0.96; PROTHROMBIN TIME 12.5 SECONDS (12.5-14.5)
[2023-04-05 12:17] LABS: PARTIAL THROMBOPLASTIN TIME 37.3 SECONDS (24.8-34.2)
[2023-04-05 12:30] LABS: ALKALINE PHOSPHATASE 54 U/L (46-116); ALT/SGPT 44 U/L (7.0-40); AST/SGOT 21 U/L (<34); BILIRUBIN,TOTAL 0.8 MG/DL (0.3-1.2); BLOOD UREA NITROGEN 21 MG/DL (9-23); CALCIUM LEVEL 9.3 MG/DL (8.3-10.6); CARBON DIOXIDE LEVEL 28 MMOL/L (20-31); CHLORIDE LEVEL 109 MMOL/L (98-107); CHOLESTEROL LEVEL 164 MG/DL (<200); CHOLESTEROL RISK RATIO 3.81 (<5); GLOMERULAR FILTRATION RATE > 60.0 (>42); GLUCOSE, FASTING 109 MG/DL (74-106); POTASSIUM SERUM 4.4 MMOL/L (3.5-5.1); SODIUM LEVEL 142 MMOL/L (136-145); TOTAL PROTEIN 6.7 G/DL (5.7-8.2); TRIGLYCERIDES LEVEL 95 MG/DL (<150)
[2023-04-05 12:42] LABS: HEMOGLOBIN A1c 5.1 % (4.0-6.0)
== END ==
LOC: M SFHCCLAY 09:13
PROVIDERS: ATTEND Family Medicine
DX: R73.01 Impaired fasting glucose (principal); R23.3 Spontaneous ecchymoses; I10 Essential (primary) hypertension

== ENCOUNTER → 2023-04-07 | Outpatient (REF) | payer MEDICARE, OTHER | LOC: M SFHCCLAY 09:31 | PROVIDERS: ATTEND Family Medicine | DX: R79.1 Abnormal coagulation profile (principal) ==

== ENCOUNTER → 2024-02-26 | Outpatient (REF) | payer MEDICARE, OTHER ==
[2024-02-26 12:12] LABS: HEMOGLOBIN A1c 5.1 % (4.0-6.0)
[2024-02-26 12:15] LABS: HEMATOCRIT 40.7 % (42.0-52.0); HEMOGLOBIN 13.3 g/dl (13.5-17.5); MEAN CORPUSCULAR HEMOGLOBIN 29.6 pg (27.0-33.0); MEAN CORPUSCULAR HGB CONC 32.7 g/dl (32.0-36.5); MEAN CORPUSCULAR VOLUME 90.4 fl (80.0-96.0); PLATELET COUNT, AUTOMATED 310 10^3/uL (150-450)
[2024-02-26 12:23] LABS: VITAMIN B12 LEVEL 808 PG/ML (211-911)
[2024-02-26 12:24] LABS: ALBUMIN 4.1 G/DL (3.2-5.2); ALKALINE PHOSPHATASE 58 U/L (40-129); ALT/SGPT 34 U/L (7.0-40); AST/SGOT 17 U/L (<34); BILIRUBIN,TOTAL 0.8 MG/DL (0.3-1.2); BLOOD UREA NITROGEN 19 MG/DL (9-23); CALCIUM LEVEL 9.7 MG/DL (8.3-10.6); CARBON DIOXIDE LEVEL 26 MMOL/L (20-31); CHLORIDE LEVEL 107 MMOL/L (98-107); CHOLESTEROL LEVEL 180 MG/DL (<200); CHOLESTEROL RISK RATIO 4.48 (<5); CREATININE FOR GFR 0.85 MG/DL (0.70-1.30); FOLATE 16.36 NG/ML (>5.4); GLOMERULAR FILTRATION RATE > 60.0 (>42); GLUCOSE, FASTING 111 MG/DL (74-106); HDL CHOLESTEROL 40.1 MG/DL (>40); LDL CHOLESTEROL 113.1 MG/DL (<100); MAGNESIUM LEVEL 1.9 MG/DL (1.8-2.4); NON-HDL-C 139.9 MG/DL; POTASSIUM SERUM 4.3 MMOL/L (3.5-5.1); SODIUM LEVEL 143 MMOL/L (136-145); TOTAL PROTEIN 6.9 G/DL (5.7-8.2); TRIGLYCERIDES LEVEL 134 MG/DL (<150)
== END ==
LOC: M SFHCCLAY 09:11
PROVIDERS: ATTEND Family Medicine
DX: I10 Essential (primary) hypertension (principal); R73.01 Impaired fasting glucose; E78.5 Hyperlipidemia, unspecified; G62.9 Polyneuropathy, unspecified; K21.9 Gastro-esophageal reflux disease without esophagitis

== ENCOUNTER → 2024-06-25 | Outpatient (REF) | payer MEDICARE, OTHER ==
[~2024-06-25] MED LIST changes: -FLOM0.4C39 PO; +TAMS-18 PO
[2024-06-25 12:09] LABS: ALBUMIN 4.2 G/DL (3.2-5.2); ALKALINE PHOSPHATASE 70 U/L (40-129); ALT/SGPT 50 U/L (7.0-40); AST/SGOT 20 U/L (<34); BILIRUBIN,TOTAL 0.9 MG/DL (0.3-1.2); BLOOD UREA NITROGEN 24 MG/DL (9-23); CARBON DIOXIDE LEVEL 31 MMOL/L (20-31); CHLORIDE LEVEL 105 MMOL/L (98-107); CREATININE FOR GFR 0.83 MG/DL (0.70-1.30); GLOMERULAR FILTRATION RATE > 90.0 (>42); GLUCOSE, FASTING 114 MG/DL (74-106); POTASSIUM SERUM 4.1 MMOL/L (3.5-5.1); SODIUM LEVEL 143 MMOL/L (136-145); TOTAL PROTEIN 7.3 G/DL (5.7-8.2)
== END ==
LOC: M SFHCCLAY 08:19
PROVIDERS: ATTEND Family Medicine
DX: I10 Essential (primary) hypertension (principal)